=== PATIENT | male | born 1965 | race Caucasian/White ===

== ENCOUNTER 2018-06-16 09:01 | Day surgery (SDC) | payer BC ==
[2018-06-16 09:11] VITALS: BMI 31.0
[2018-06-16] MEDS ORDERED: Lidocaine 4% (Laryng-O-Jet) Kit MM ONE (09:29)
[2018-06-16] MEDS ORDERED: Midazolam 2 MG/2 ML VIAL ONE (10:48)
[2018-06-16] MEDS ORDERED: Propofol 10 mg/ml Inj (20 ML) ONE ×2 (10:49)
--- NOTE | 2018-06-17 22:50 | CARD ---
APPROVED REPORT Date of service: 06/16/2018 EXAM: Transesophageal echocardiogram with color flow Doppler with saline bubbles. INDICATION Limited ENRIQUE Study/ TDS (Patient Body Surface) Echo Enhancing Agent Indication: Rule Out Septal Defect Agent/Amount Used: Agitated Saline Reason For Test : R/O Intra cardiac shunt PROCEDURE After obtaining informed consent, patient underwent transesophageal echo in the [employer]. Type of Sedation : Conscious Sedation Sedation was provided by anesthesiologist. Sedation was achieved with intravenously. The ENRIQUE was performed complications. Throughout the procedure, the blood pressure, pulse oximetry, cardiac rhythm, and rate were monitored. The patient tolerated the procedure without adverse effects. Recovery from conscious sedation was uneventful and vital signs were stable. LEFT VENTRICLE The left ventricle is normal size. The left ventricular function is normal. The left ventricular ejection fraction is within the normal range. There is normal LV segmental wall motion. No left ventricle thrombus noted on this study. There is no ventricular septal defect visualized. There is no left ventricular aneurysm. RIGHT VENTRICLE The right ventricle is mildly to moderately dilated. The right ventricular systolic function is normal. ATRIA The left atrium size is normal. The right atrium is mildly dilated. The interatrial septum is intact with no evidence for an atrial septal defect. AORTIC VALVE The aortic valve is normal in structure. No aortic regurgitation is present. There is no aortic valvular stenosis. There is no aortic valvular vegetation. MITRAL VALVE The mitral valve is normal in structure. There is no evidence of mitral valve prolapse. There is no mitral valve stenosis. Mitral regurgitation is mild. TRICUSPID VALVE The tricuspid valve is normal in structure. There is mild tricuspid regurgitation. There is no tricuspid valve prolapse or vegetation. There is no tricuspid valve stenosis. PULMONIC VALVE The pulmonary valve is normal in structure. There is no pulmonic valvular regurgitation. There is no pulmonic valvular stenosis. GREAT VESSELS The aortic root is normal in size. <Conclusion> The left ventricular function is normal. The left ventricular ejection fraction is within the normal range. The right ventricle is mildly to moderately dilated. The right ventricular systolic function is normal. The left atrium size is normal. The right atrium is mildly dilated. There is mild tricuspid regurgitation. No bubble cross over seen No intra cardiac shunt noted
== END 2018-06-16 13:05 | disposition home or self-care (01) ==
LOC: C.CATHLAB 09:01
PROVIDERS: ATTEND Internal Medicine Cardiovascular Disease
DX: R93.1 Abnormal findings on diagnostic imaging of heart and coronary circulation (principal); E11.9 Type 2 diabetes mellitus without complications; I10 Essential (primary) hypertension; E78.00 Pure hypercholesterolemia, unspecified; Z21 Asymptomatic human immunodeficiency virus [HIV] infection status
CPT/HCPCS: 36415; 82948; 85610; 85730; 93312; J2250; J2704; J3010